=== PATIENT | male | born 1995 | race Caucasian/White ===

== ENCOUNTER 2017-04-14 19:34 | Emergency (ER) | payer MEDICAID ==
[2017-04-14] MEDS: IBUPROFEN 600 MG TAB PO (22:57)
[2017-04-14] MEDS: ACETAMINOPHEN 500 MG TAB PO (22:57)
== END 2017-04-14 23:43 | disposition home or self-care (01) ==
LOC: FTE 19:34
DX: R50.9 Fever, unspecified (principal); R05 Cough; R07.0 Pain in throat
CPT/HCPCS: 87400; 99283